=== PATIENT | male | born 1970 | race Caucasian/White ===

== ENCOUNTER 2021-02-07 18:07 | Inpatient (IN) | payer BC ==
[~2021-02-07] VITALS: Ht 175.3 cm; Wt 104.8 kg
[2021-02-07 19:11] LABS: HEMOGLOBIN 15.7 gm/dl (14.0-17.5); RED BLOOD COUNT 5.18 M/UL (4.20-5.50); WHITE BLOOD COUNT 25.8 K/UL (4.5-11.0)
[2021-02-07 19:34] LABS: BUN/CREATININE RATIO 20 (0-10)
[2021-02-07] MEDS ORDERED: BUDESONIDE-FO10.2 G1 INH (23:05)
[2021-02-07] MEDS ORDERED: CATAPRES 0.1MG0.1 MG PO (23:06)
[2021-02-07] MEDS ORDERED: METFORMIN HCL500 MG PO (23:07)
[2021-02-07] MEDS ORDERED: HYDROCHLOROTHIA25 MG PO (23:07)
[2021-02-07] MEDS ORDERED: GABAPENTIN800 MG PO (23:10)
[2021-02-08 03:01] LABS: HEMOGLOBIN 14.3 gm/dl (14.0-17.5); RED BLOOD COUNT 4.76 M/UL (4.20-5.50); WHITE BLOOD COUNT 21.9 K/UL (4.5-11.0)
[2021-02-08 03:19] LABS: BUN/CREATININE RATIO 22 (0-10)
[2021-02-08] MEDS ORDERED: ZESTRIL/PRINIVI10 MG PO (11:32)
[2021-02-08] MEDS ORDERED: CELEXA20 MG PO (11:32)
[2021-02-08] MEDS ORDERED: IBUPROFEN400 MG PO (11:32)
[2021-02-09 02:55] LABS: HEMOGLOBIN 13.9 gm/dl (14.0-17.5); RED BLOOD COUNT 4.63 M/UL (4.20-5.50); WHITE BLOOD COUNT 16.7 K/UL (4.5-11.0)
[2021-02-09 03:17] LABS: BUN/CREATININE RATIO 36 (0-10)
[2021-02-10 03:26] LABS: HEMOGLOBIN 13.6 gm/dl (14.0-17.5); RED BLOOD COUNT 4.61 M/UL (4.20-5.50)
[2021-02-10 03:35] LABS: WHITE BLOOD COUNT 11.1 K/UL (4.5-11.0)
[2021-02-10 03:49] LABS: BUN/CREATININE RATIO 32 (0-10)
[2021-02-10 13:10] LABS: ORGANISM ID Not indicated. (.); SPECIMEN SOURCE Urine (.); STREPTOCOCCUS PNEUMONIAE AG Negative (Negative)
[2021-02-11 05:34] LABS: BUN/CREATININE RATIO 24 (0-10)
[2021-02-11 09:21] LABS: HEMOGLOBIN 13.9 gm/dl (14.0-17.5); RED BLOOD COUNT 4.66 M/UL (4.20-5.50); WHITE BLOOD COUNT 11.3 K/UL (4.5-11.0)
[2021-02-11 10:43] LABS: BODY FLUID SOURCE PLEURAL; MONONUCLEAR CELLS 2.4 (75-100); POLYMORPHONUCLEAR % 97.6 (0-25); RBC (AUTOMATED) 900 (0-100000); WBC (AUTOMATED) 2654 (0-500)
[2021-02-11 11:05] LABS: LDH, BODY FLUID 883 U/L; TOTAL PROTEIN, BODY FLUID 4.2 gm/dL
[2021-02-11] MEDS ORDERED: IPRAT-ALBUT 0.5-3 ML NEB (11:43)
[2021-02-11] MEDS ORDERED: LANTUS INS100 UTS/M1 SC (11:43)
[2021-02-11] MEDS ORDERED: HUMALOG 10100 UNITS/ SC (11:43)
== END 2021-02-11 14:39 | disposition short-term general hospital (02) | DRG 871 ==
LOC: ER1 18:07 → CDU 21:47 → M/S 21:47
PROVIDERS: Internal Medicine; Internal Medicine Pulmonary Disease; Physician Assistant; ADMIT Internal Medicine
PROC: 0W993ZZ Drainage of Right Pleural Cavity, Percutaneous Approach (ICD-10-PCS; principal; 2021-02-11)
DX: A41.02 Sepsis due to Methicillin resistant Staphylococcus aureus (principal); J15.212 Pneumonia due to Methicillin resistant Staphylococcus aureus; J90 Pleural effusion, not elsewhere classified; E87.1 Hypo-osmolality and hyponatremia; E66.9 Obesity, unspecified; J43.9 Emphysema, unspecified; E87.6 Hypokalemia; E11.65 Type 2 diabetes mellitus with hyperglycemia; E78.5 Hyperlipidemia, unspecified; Z20.822 Contact with and (suspected) exposure to COVID-19; I10 Essential (primary) hypertension; F17.210 Nicotine dependence, cigarettes, uncomplicated; Z80.1 Family history of malignant neoplasm of trachea, bronchus and lung; Z82.49 Family history of ischemic heart disease and other diseases of the circulatory system; Z88.6 Allergy status to analgesic agent; Z79.84 Long term (current) use of oral hypoglycemic drugs; Z68.34 Body mass index [BMI] 34.0-34.9, adult
CPT/HCPCS: 0240U; 36415; 36600; 71045; 71046; 71250; 80048; 80053; 80202; 82009; 82150; 82436; 82550; 82553; 82570; 82803; 82945; 82962; 83605; 83615; 83874; 83986; 84133; 84156; 84157; 84300; 84484; 85025; 86140; 87040; 87070; 87077; 87081; 87186; 87205; 87278; 87899; 89051; 93005; 94640; 94664; 94760; 96374; 96375; 99285; J0696; J1650; J1885; J1956; J2185; J2270; J2405; J3370; J7030; J7070

== ENCOUNTER → 2021-03-28 | Outpatient (CLI) | payer BC ==
[~2021-03-28] MED LIST: BUDESONIDE-FO10.2 G1 INH; CATAPRES 0.1MG0.1 MG PO; CELEXA20 MG PO; GABAPENTIN800 MG PO; HUMALOG 10100 UNITS/ SC; HYDROCHLOROTHIA25 MG PO; IBUPROFEN400 MG PO; IPRAT-ALBUT 0.5-3 ML NEB; LANTUS INS100 UTS/M1 SC; METFORMIN HCL500 MG PO; ZESTRIL/PRINIVI10 MG PO
== END ==
LOC: EXRD 09:25
DX: Z00.00 Encounter for general adult medical examination without abnormal findings (principal)
CPT/HCPCS: 71046